=== PATIENT | male | born 1975 | race Caucasian/White ===

== ENCOUNTER → 2018-04-29 10:47 | Outpatient (CLI) | payer OTHER, SELFPAY ==
--- NOTE | 2018-04-29 | DI.MRI.S_ITS ---
PROCEDURE: MR LUMBAR SPINE WO CON INDICATIONS: LUMBAGO TECHNIQUE: Noncontrast sagittal T1 spin echo and T2 fast echo, sagittal STIR, axial T1 and T2 fast spin echo through the lumbar spine. In cases with scoliosis, additional coronal T2 fast spin echo may be performed. COMPARISON: None. FINDINGS: Image quality: Excellent. Alignment and Curvature: There is normal bony alignment. Hypoplastic S1-S2 disc space. Please see the montage image for clarification of spinal segmental level numbering scheme used in this report, and prior to any spinal intervention. Bone Marrow: Marrow is of normal overall signal. No acute vertebral body compression fractures. Myva-yx-cfwrzcip L4-L5 and L5-S1 disc degeneration, where there are posterior annular fissures at both levels. Diffuse facet arthropathy. Spinal Cord: Conus medullaris terminates at the L1-L2 level. Visualized cord demonstrates normal signal and size. Paraspinous Soft Tissues: No paravertebral masses. L1-L2: Normal appearance. L2-L3: Normal appearance. L3-L4: Normal appearance. L4-L5: Mild central canal narrowing. Partial effacement of both lateral recesses although symmetric in appearance mild right foraminal narrowing. No definite left foraminal stenosis. L5-S1: No definite central canal narrowing. Minimal partial effacement of the left lateral recess. The right lateral recess appears grossly patent. No definite foraminal stenoses IMPRESSION: Mild lower lumbar degenerative disease and diffuse facet arthropathy. No high-grade canal stenosis. Mild right L4-L5 foraminal narrowing. Dictated by: Dwight Early M.D. on 04/29/2018 at 13:35 Approved by: Dwight Early M.D. on 04/29/2018 at 13:41
== END ==
PROVIDERS: PCP Internal Medicine; Visit Provider Internal Medicine
DX: M51.36 Other intervertebral disc degeneration, lumbar region (principal); M48.061 Spinal stenosis, lumbar region without neurogenic claudication; M47.816 Spondylosis without myelopathy or radiculopathy, lumbar region
CPT/HCPCS: 72148